=== PATIENT | male | born 1945 | race Caucasian/White ===

== ENCOUNTER 2018-10-06 10:01 | Emergency (ER) | payer MEDICARE, OTHER ==
[~2018-10-06] VITALS: Ht 182.9 cm; Wt 90.7 kg
[2018-10-06 10:01] VITALS: BP_SYST 112
[~2018-10-06 10:01] MED LIST: INSU100C5 IJ; LIP80 PO; LISI-209 PO; METO25TA6 PO; NORT10CA PO; NPH,100V11 SQ; PRO10 PO; WARF5TAB2 PO
--- NOTE | 2018-10-06 10:01 | NUR ---
Patient to ER bed 5 to gown for evaluation. Side rails up. Report given to CAREN Cleaning.
--- NOTE | 2018-10-06 10:18 | NUR ---
ER Dr. Stoll at bedside examining patient.
--- NOTE | 2018-10-06 10:20 | NUR ---
ER Dr. Stoll at bedside examining patient.
--- NOTE | 2018-10-06 10:20 | NUR ---
Angelique ding in ED - 10/06/18 at 1020 by GALDINO SERGIO Stoll at bedside examining patient.
[2018-10-06] MEDS ORDERED: MORPHINE 4 MG/ML INJ. SYRINGE IM ONE (10:30)
--- NOTE | 2018-10-06 10:31 | NUR ---
X-Ray at bedside.
[2018-10-06 12:49] LABS: BASOPHILS # (AUTO) 0.1 K/uL (0.0-0.2); BASOPHILS % (AUTO) 0.6 % (0.0-2.0); EOSINOPHILS # (AUTO) 0.1 K/uL (0.0-0.4); EOSINOPHILS % (AUTO) 0.5 % (0.0-4.0); HEMATOCRIT 44.8 % (36-54); HEMOGLOBIN 14.6 g/dL (14.0-18.0); LYMPHOCYTES # (AUTO) 2.3 K/uL (1.0-5.5); LYMPHOCYTES % (AUTO) 18.2 % (20.5-51.5); MEAN CORPUSCULAR HEMOGLOBIN 29 pg (27-31); MEAN CORPUSCULAR HGB CONC 33 % (32-36); MEAN CORPUSCULAR VOLUME 89 fL (79.0-98.0); MONOCYTES # (AUTO) 0.7 K/uL (0.0-1.0); MONOCYTES % (AUTO) 5.8 % (1.7-9.3); NEUTROPHILS # (AUTO) 9.3 K/uL (1.8-7.7); NEUTROPHILS % (AUTO) 74.9 % (40.0-70.0); PLATELET COUNT (AUTO) 283 K/uL (130-430); RED BLOOD CELL COUNT(AUTO) 5.06 MIL/uL (4.2-6.2); RED CELL DISTRIBUTION WIDTH 13.7 % (9.0-15.0); WHITE BLOOD COUNT (AUTO) 12.4 K/uL (4.8-10.8)
[2018-10-06 12:54] LABS: ANION GAP 12 (5-15); CHLORIDE 104 mmol/L (98-107); CREATININE 2.29 mg/dL (0.55-1.30); GLUCOSE 264 mg/dL (70-99); POTASSIUM 4.4 mmol/L (3.5-5.1); SODIUM SERUM 140 mmol/L (136-145); UREA NITROGEN, BLOOD 48 mg/dL (8-21)
[2018-10-06 13:01] LABS: CALCIUM 9.7 mg/dL (8.4-11.0)
--- NOTE | 2018-10-06 13:11 | NUR ---
Patient transported to radiology via gurney, accompanied by air conditioning technician.
--- NOTE | 2018-10-06 13:30 | NUR ---
Returned from radiology, back to [facility].
--- NOTE | 2018-10-06 15:00 | NUR ---
Ambulance on site for pickup.
--- NOTE | 2018-10-06 15:05 | NUR ---
Patient to be transferred to [facility]. Is being transferred due to higher level of care. Receiving facility has accepting physician and available space. ER physician has signed transfer form. Patient or responsible constitution party has agreed to transfer and signed form. Patient belongings inventoried and will be sent with patient. Copy of nursing notes, lab reports, EKG, Physicians Orders and X-rays to be sent with patient. Report called to Lili at receiving facility. Receiving physician is Dr. Jay. [facility] has been called for transfer.
[2018-10-06 15:13] VITALS: BP_SYST 124
== END 2018-10-06 15:13 | disposition short-term general hospital (02) ==
LOC: SED 10:01
DX: M25.551 Pain in right hip (principal); I48.91 Unspecified atrial fibrillation; E11.9 Type 2 diabetes mellitus without complications; I10 Essential (primary) hypertension; Z95.1 Presence of aortocoronary bypass graft; Z88.8 Allergy status to other drugs, medicaments and biological substances; Z79.899 Other long term (current) drug therapy
CPT/HCPCS: 36415; 72192; 73502; 85025; 80048; 96372; 99285; J2270